=== PATIENT | male | born 1970 | race Caucasian/White ===

== ENCOUNTER 2022-09-12 20:12 | Emergency (ER) | payer OTHER, MEDICAID ==
[~2022-09-12] VITALS: Ht 177.8 cm; Wt 72.6 kg
[2022-09-12 20:12] VITALS: BP 132/80
--- NOTE | 2022-09-12 20:13 | NUR ---
LENORE ALS TO BED #2
[2022-09-12] MEDS ORDERED: NACL 0.9% 1,000 ML IV ONE (20:20)
[2022-09-12 20:37] LABS: BASOPHILS % (AUTO) 0.4 % (0.0-2.0); EOSINOPHILS # (AUTO) 0.4 K/uL (0-0.4); EOSINOPHILS % (AUTO) 3.7 % (0.0-4.0); HEMATOCRIT 42.2 % (36-52); HEMOGLOBIN 14.3 g/dL (12.0-18.0); LYMPHOCYTES # (AUTO) 4.9 K/uL (2.0-11.5); LYMPHOCYTES % (AUTO) 43.3 % (20.5-51.1); MEAN CORPUSCULAR HEMOGLOBIN 32 pg (27-31); MEAN CORPUSCULAR HGB CONC 34 g/dL (33-37); MEAN CORPUSCULAR VOLUME 94.1 fL (80-94); MONOCYTES % (AUTO) 8.7 % (1.7-9.3); NEUTROPHILS # (AUTO) 4.9 K/uL (1.8-7.7); NEUTROPHILS % (AUTO) 43.9 % (42.2-75.2); PLATELET COUNT (AUTO) 262 K/uL (140-450); RED BLOOD CELL COUNT(AUTO) 4.48 MIL/uL (4.20-6.10); WHITE BLOOD COUNT (AUTO) 11.2 K/uL (4.8-10.8)
--- NOTE | 2022-09-12 20:47 | NUR ---
LENORE from home, per report, pt took 50 mg of methadone and a norco. O2 sat 99% on 15L. hx HIV and substance abuse, NKA.
[2022-09-12 20:58] LABS: ACETAMINOPHEN 4.3 ug/ml (10-30); ANION GAP 11.2 (8-16); ASPARTATE AMINOTRANSFERASE 17 U/L (15-37); CARBON DIOXIDE 23.4 mmol/L (21-32); CHLORIDE 110 mmol/L (98-107); CREATININE 0.9 mg/dL (0.6-1.3); GFR ARICAN-AMERICAN 113 mL/min (>90); GLUCOSE 79 mg/dL (74-106); SALICYLATE 4.6 mg/dL (2.8-20.0); SODIUM SERUM 142 mmol/L (136-145); TOTAL BILIRUBIN 0.3 mg/dL (0.0-1.0); UREA NITROGEN, BLOOD 5 mg/dL (7-18)
--- NOTE | 2022-09-12 21:27 | NUR ---
Pt on RA at this time, O2 sat 92%. Denies any SOB.
[2022-09-12 21:28] LABS: POTASSIUM 2.6 mmol/L (3.5-5.1)
--- NOTE | 2022-09-12 21:30 | NUR ---
Attempted to collect urine, pt states he is unable to urinate at this time
[2022-09-12] MEDS ORDERED: KCL 20 MEQ IN 100 mL PREMIX 100 ML IV ONE (21:40)
[2022-09-12] MEDS ORDERED: POTASSIUM CHLORIDE 10 MEQ TABER PO ONE (21:40)
--- NOTE | 2022-09-12 21:40 | NUR ---
With pt permission, spoke with tori who stated pt goes to methadone clinic and methadone dose recently increased to 55 mg, and he had taken norco today, and was feeling weak prior to incident, which pt confirmed. Pt denies any discomfort at this time.
--- NOTE | 2022-09-12 22:59 | NUR ---
Pt resting comfortably at this time, no c/o discomfort. Attempted to collect urine, pt unable to urinate at this time
--- NOTE | 2022-09-13 00:38 | NUR ---
Urine collected and sent to lab
[2022-09-13 01:18] LABS: BARBITURATE, URINE NEGATIVE ng/ml (NEG <=200); BENZODIAZEPINE, URINE NEGATIVE ng/mL (NEG <=200); CANNABINOID, URINE POSITIVE ng/mL (NEG <=50); COCAINE, URINE NEGATIVE ng/mL (NEG <=300); OPIATE, URINE POSITIVE ng/mL (NEG <=2000); PHENCYCLIDINE SCREEN,URINE NEGATIVE ng/mL (NEG <=25)
--- NOTE | 2022-09-13 01:50 | NUR ---
ED Dr. Hernandez reevaluating patient at this time.
--- NOTE | 2022-09-13 01:54 | NUR ---
Pt ambulated, gait steady, O2 sat 96% on RA. Denies weakness.
[2022-09-13] MEDS ORDERED: NALO4SPR NS (01:56)
[2022-09-13 02:18] VITALS: BP 111/66
--- NOTE | 2022-09-13 02:28 | NUR ---
Patient discharged with v/s stable. Written and verbal after care instructions given and explained. New rx narcan. Patient verbalized understanding. Ambulatory with steady gait. Accompanied by tori. All questions addressed prior to discharge. Advised to follow up with PMD.
== END 2022-09-13 02:18 | disposition home or self-care (01) ==
LOC: MED 20:12
DX: R41.82 Altered mental status, unspecified (principal); T40.2X1A Poisoning by other opioids, accidental (unintentional), initial encounter; Y92.89 Other specified places as the place of occurrence of the external cause
CPT/HCPCS: 36415; 71045; 80053; 80305; 82550; 84484; 85025; 93005; 96360; 96361; 99285; G0480; G0482; J3480; J7030; Q0092